=== PATIENT | male | born 1970 | race Caucasian/White ===

== ENCOUNTER 2017-07-10 14:42 | Emergency (ER) | payer MEDICAID, SELFPAY ==
[2017-07-10 14:43] VITALS: BP 141/95; PULSE 101; RESP 16; TEMP 36.6; O2SAT 94; BMI 33.6
--- NOTE | 2017-07-10 15:12 | ED.VISSUMM ---
- ER Visit Summary Date of Service: 07/10/17 Chief Complaint: Rash and headache History of Present Illness: The patient is a 46 M states that last Eddie he developed a headache on the left side of his head. He states the headache has gotten better but 2 days ago he developed a rash. He describes the pain of the rash is an open sore. Now he notes his eyelid is swollen and also has the rash. He states his eyeball hurts and he notes redness of the eye. He denies any visual changes. He wears no contacts or glasses. He is not immunocompromised. Physical Examination: Afebrile vital signs are stable Gen: Well-nourished well-developed Head: Normocephalic atraumatic Eyes: Perrl EOMI left eye is injected with mild tearing. ENT: TMs clear no rhinorrhea moist mucous membranes Neck: Supple no lymphadenopathy no JVD nontender CVS: Regular rate rhythm no murmurs normal S1-S2 Respiratory: No distress clear to auscultation bilaterally chest nontender Abdomen: Soft nontender nondistended normal bowel sounds no masses Back: Nontender Extremity: Nontender no edema Skin: Normal color rash consistent with zoster in the V1 distribution involving the upper and lower eyelid. Neuro: alert orientated ?3 CN II-XII intact normal strength sensation reflexes gait cerebellar Psych: Normal affect normal mood Emergency Department Course and Treatment: We do not have fluorescein strips to assess his eye. I spoke with Dr. Gracia from ophthalmology who is happy to see the patient. He will be seen tomorrow as no one is in the office today. We will start him on antivirals, prednisone, and [place]. Return if worsening. Impression: 1. Herpes zoster ophthalmicus This note was generated with mPortal dictation software. It may contain incorrect words, spelling, and punctuation that were not noted in review of the chart prior to signing ED Disposition - Plan for ED Patient: Disposition: Home or Assisted Living Chief Complaint: Headache Instructions: ED Shingles Prescriptions: Hydrocodone Bitart/Apap 5-325 [[place] 5/325] 1 - 2 tab PO Q6H PRN PRN 3 Days #20 tab PRN Reason: Pain Acyclovir [Zovirax] 800 mg PO 5X/DAY #40 tab Prednisone [Deltasone] 60 mg PO DAILY #15 tab Referrals: Ady Kaur MD [Primary Care Provider] - 1 Week Gabino Gracia MD [STAFF PHYSICIAN] - (APPT IS SATURDAY (JULY 11 2017) AT 1415 HOURS )
--- NOTE | 2017-07-10 15:32 | ED.DCSUM_ITS ---
- ER Visit Summary Date of Service: 07/10/17 Chief Complaint: Rash and headache History of Present Illness: The patient is a 46 M states that last Eddie he developed a headache on the left side of his head. He states the headache has gotten better but 2 days ago he developed a rash. He describes the pain of the rash is an open sore. Now he notes his eyelid is swollen and also has the rash. He states his eyeball hurts and he notes redness of the eye. He denies any visual changes. He wears no contacts or glasses. He is not immunocompromised. Physical Examination: Afebrile vital signs are stable Gen: Well-nourished well-developed Head: Normocephalic atraumatic Eyes: Perrl EOMI left eye is injected with mild tearing. ENT: TMs clear no rhinorrhea moist mucous membranes Neck: Supple no lymphadenopathy no JVD nontender CVS: Regular rate rhythm no murmurs normal S1-S2 Respiratory: No distress clear to auscultation bilaterally chest nontender Abdomen: Soft nontender nondistended normal bowel sounds no masses Back: Nontender Extremity: Nontender no edema Skin: Normal color rash consistent with zoster in the V1 distribution involving the upper and lower eyelid. Neuro: alert orientated ?3 CN II-XII intact normal strength sensation reflexes gait cerebellar Psych: Normal affect normal mood Emergency Department Course and Treatment: We do not have fluorescein strips to assess his eye. I spoke with Dr. Gracia from ophthalmology who is happy to see the patient. He will be seen tomorrow as no one is in the office today. We will start him on antivirals, prednisone, and [place]. Return if worsening. Impression: 1. Herpes zoster ophthalmicus This note was generated with Parametric dictation software. It may contain incorrect words, spelling, and punctuation that were not noted in review of the chart prior to signing ED Disposition - Plan for ED Patient: Disposition: Home or Assisted Living Chief Complaint: Headache Instructions: ED Shingles Prescriptions: Hydrocodone Bitart/Apap 5-325 [[place] 5/325] 1 - 2 tab PO Q6H PRN PRN 3 Days #20 tab PRN Reason: Pain Acyclovir [Zovirax] 800 mg PO 5X/DAY #40 tab Prednisone [Deltasone] 60 mg PO DAILY #15 tab Referrals: Ady Kaur MD [Primary Care Provider] - 1 Week Gabino Gracia MD [STAFF PHYSICIAN] - (APPT IS SATURDAY (JULY 11 2017) AT 1415 HOURS )
== END 2017-07-10 15:48 | disposition home or self-care (01) ==
LOC: ED 15:43
PROVIDERS: Emergency Provider Emergency Medicine; Family Provider Internal Medicine; PCP Internal Medicine
DX: B02.30 Zoster ocular disease, unspecified (principal); I10 Essential (primary) hypertension; Z87.442 Personal history of urinary calculi; Z79.899 Other long term (current) drug therapy
CPT/HCPCS: 99283

== ENCOUNTER 2018-06-02 21:38 | Observation (INO) | payer MEDICAID, SELFPAY ==
[2018-06-02 21:38] VITALS: BP 165/115; PULSE 83; RESP 17; TEMP 35.5; O2SAT 96; BMI 32.5
--- NOTE | 2018-06-02 21:55 | ED.VIS.GEN ---
History of Present Illness Informant: Patient Onset: Today, Hours - 4 Context: Gradual Onset - About 5-10 minutes after eating a salad with ranch dressing Timing: Continuous Quality: like gas cramps Location: upper abd Current Severity: Severe Maximum Severity: Severe Worsened by: nothing Relieved by: nothing Associated Symptoms: n/v without coffee-ground emesis or hematemesis Narrative: Was near syncopal at one point, while he was very nauseated. States he only had this 1 other time, it was a week or 2 ago but it only lasted an hour or so and then solved. It has been somewhat colicky in the past 4 hours since it has been present. It radiates straight through to his back. He has had no recent alcohol and does not drink at all. No recent melena or bright red blood per rectum. No urinary symptoms. The pain is in a band across his upper abdomen, nonlateralizing. No thoracic symptoms. Recent Illness/Hospitalization: No <Zenon Horowitz - Last Filed: 06/03/18 00:03> <Ector Recio - Last Filed: 06/03/18 01:29> Chief Complaint: Abd Pain Past Medical History Past Medical History: None Surgical History: no surgical history Smoking Status: Never smoker Alcohol: None <Zenon Horowitz - Last Filed: 06/03/18 00:03> <Ector Recio - Last Filed: 06/03/18 01:29> - Allergies and Home Meds Allergies/Adverse Reactions: Allergies fish oil Allergy (Verified 06/02/18 21:41) Hives Primary Care Physician: Ady Kaur MD [Primary Care Provider] - Review of Systems General: Denies: Chills, Fever, Sweats Eyes: Denies: Visual changes - bilaterally, Diplopia ENT: Denies: Rhinorrhea, Sore throat Cardiovascular: Denies: Chest pain, Palpitations Respiratory: Denies: Dyspnea, Cough, Dyspnea on exertion Gastrointestinal: Reports: Abdominal pain, Nausea, Vomiting. Denies: Diarrhea, Melena, Hematochezia Genitourinary: Denies: Dysuria, Hematuria, Frequency Musculoskeletal: Reports: Back pain. Denies: Extremity Pain Skin: Denies: Rash, Wounds Neurological: Denies: Headache, Weakness, Numbness <Zenon Horowitz - Last Filed: 06/03/18 00:03> Physical Exam Vital Signs/Narrative: Vital Signs Temp Pulse Resp BP Pulse Ox 06/02/18 21:38 96 F L 83 17 165/115 H 96 Inital Vital Signs reviewed: Yes General: Well nourished, Well developed, No Acute Distress Head: Normocephalic, Atraumatic Eyes: Perrl, EOMI ENT: Moist mucous membranes, No rhinorrhea Neck: Supple, Nontender Cardiovascular: Regular rate, Regular rhythm, No murmurs Respiratory: No distress, CTA bilaterally, Chest nontender Abdomen: Soft, Nontender, Nondistended, Normal bowel sounds, No masses. Negative for: Pulsatile mass, Mcmahon's sign Back: Nontender - and nml ROM w/o increased pain, Normal Inspection. Negative for: CVA tenderness Extremities: Nontender, No edema Skin: Normal color, No rash Neurological: Alert, Oriented x3, Cranial nerves II-XII grossly intact, Normal Strength, Normal Sensation, Normal Gait Psychological: Normal affect, Normal Mood <Zenon Horowitz - Last Filed: 06/03/18 00:03> Vital Signs/Narrative: Vital Signs Temp Pulse Resp BP Pulse Ox 06/03/18 00:47 85 18 174/91 H 94 06/02/18 21:38 96 F L 83 17 165/115 H 96 <Ector Recio - Last Filed: 06/03/18 01:29> Diagnostic/Tx/Re-eval Laboratory Tests 06/02/18 06/02/18 Range/Units 22:03 22:03 WBC 12.3 H (4.4-11.0) K/mm3 RBC 5.61 (4.6-6.2) M/mm3 Hgb 16.7 H (13.0-16.5) g/dl Hct 48.2 (40-54) % MCV 85.9 (80-94) fL MCH 29.8 (27.0-32.0) pg MCHC 34.6 (32-36) g/gl RDW 13.6 (11.6-14.6) % RDW Differential 41.9 (35.1-43.9) fl Plt Count 220 (150-450) K/mm3 MPV 9.4 (6.2-12.0) fl Immature Gran % (Auto) 0.700 (0.0-0.9) % Neut % (Auto) 74.2 H (47-70) % Lymph % (Auto) 18.5 L (19-41) % [place] % (Auto) 5.3 (0-10) % Eos % (Auto) 0.9 (0-5) % Baso % (Auto) 0.4 (0-1) % Absolute Neuts (auto) 9.1 H (2.0-7.7) X10^3/uL Absolute Lymphs (auto) 2.27 (0.83-4.51) X10^3/ul Total Counted Not Reportable Sodium 140 (136-145) mmol/L Potassium 3.6 (3.5-5.1) mmol/L Chloride 104 (98-107) mmol/L Carbon Dioxide 27.0 (21.0-32.0) mmol/L Anion Gap 9 (5-15) BUN 17 (7-18) mg/dL Creatinine 1.18 (0.70-1.30) mg/dL Estim Creat Clear Calc 86.77 ml/min Est GFR (MDRD) Af Amer 86 (>60) mL/min Est GFR (MDRD) Non-Af 71 (>60) mL/min BUN/Creatinine Ratio 14.4 (10-20) RATIO Glucose 150 H (74-106) mg/dL Calcium 9.3 (8.5-10.1) mg/dL Total Bilirubin 0.40 (0.20-1.00) mg/dL AST 22 (15-37) U/L ALT 46 (16-61) U/L Alkaline Phosphatase 135 H (45-117) U/L Total Protein 8.1 (6.4-8.2) g/dL Albumin 4.0 (3.2-5.0) g/dL Globulin 4.1 (2.2-4.2) g/dL Albumin/Globulin Ratio 1.0 (0.9-2.4) RATIO Lipase 131 (73-393) U/L - Medical Decision Making Patient was initially treated with a GI cocktail and Zofran, given his very benign abdominal exam. However, it did not help his discomfort or nausea at all, he vomited up part of the GI cocktail after he kept it down for 5 minutes and it did not help, and he actually said his pain was worse. He was then treated with morphine and Phenergan, he really did not have much relief at all. I did a bedside ultrasound, which shows a distended gallbladder with no sonographic Mcmahon's, no pericholecystic fluid, and a gallbladder wall that is 0.19 cm, which is well within normal limits. I do not see any signs of shadowing stones. He has a mild leukocytosis, his liver enzymes and lipase are all normal. I am concerned that these medications have not helped him feel better at all. He has not been having any routine symptoms after meals to suggest a peptic ulcer, my suspicion for perforation is low, but I am going to obtain a CT with IV contrast to rule out retroperitoneal processes and other intra-abdominal processes that could explain this. Meanwhile, he is being treated additionally with Toradol and Bentyl to try to help his symptoms. Will be checked out to the nighttime ED physician for CT results and reevaluation. <Zenon Horowitz - Last Filed: 06/03/18 00:03> - Medical Decision Making Patient was signed out to me to reevaluate and follow-up on CT. CT shows a 3 x 1 mm proximal left ureteral calculus with mild hydroureter. Patient still complaining of significant pain on reevaluation. He was given an additional dose of IV morphine. He was discussed with urology and patient admitted. <Ector Recio - Last Filed: 06/03/18 01:29> ED Disposition <Zenon Horowitz - Last Filed: 06/03/18 00:03> <Ector Recio - Last Filed: 06/03/18 01:29> - Plan for ED Patient: Diagnosis: Upper abdominal pain Instructions: ED Abdominal Pain Unkn Cause Referrals: Ady Kaur MD [Primary Care Provider] -
[2018-06-02] MEDS: Ondansetron 4 MG/2 ML Vial IV (22:08)
[2018-06-02] MEDS: Mag Hydrox/Al Hydrox/Simeth 30 ML UDC PO (22:08)
[2018-06-02] MEDS: 0.9% Normal Saline 1,000 ML 1000 ML IV (22:08)
[2018-06-02 22:12] LABS: Absolute Lymphocyte Count 2.27 X10^3/ul (0.83-4.51); Absolute Neutrophil Count 9.1 X10^3/uL (2.0-7.7); Basophil# 0.05 X10^3/uL; Basophil% 0.4 % (0-1); Eosinophil# 0.11 X10^3/uL; Eosinophils% 0.9 % (0-5); Hematocrit 48.2 % (40-54); Hemoglobin 16.7 g/dl (13.0-16.5); Lymphocyte # 2.27 X10^3/ul (4.0); Lymphocyte % 18.5 % (19-41); Mean Corp Hgb Conc 34.6 g/gl (32-36); Mean Corpuscular Hgb 29.8 pg (27.0-32.0); Mean Corpuscular Volume 85.9 fL (80-94); Mean Platelet Vol. 9.4 fl (6.2-12.0); Monocyte# 0.65 X10^3/uL; Monocyte% 5.3 % (0-10); Neutrophil # 9.09 X10^3/uL (2.7-7.7); Neutrophil % 74.2 % (47-70); Platelet Count 220 K/mm3 (150-450); RBC Distribution Width CV 13.6 % (11.6-14.6); RBC Distribution Width SD 41.9 fl (35.1-43.9); Red Blood Count 5.61 M/mm3 (4.6-6.2); White Blood Count 12.3 K/mm3 (4.4-11.0)
[2018-06-02 22:13] LABS: POSITIVE COUNT NO; POSITIVE DIFFERENTIAL NO; POSITIVE MORPHOLOGY NO
[2018-06-02 22:47] LABS: AST(SGOT) 22 U/L (15-37); Alanine Aminotransfer ALT/SGPT 46 U/L (16-61); Alkaline Phosphatase 135 U/L (45-117); Anion Gap 9 (5-15); BUN 17 mg/dL (7-18); BUN/Creat Ratio 14.4 RATIO (10-20); Calcium,Total 9.3 mg/dL (8.5-10.1); Chloride 104 mmol/L (98-107); Creatinine, Serum 1.18 mg/dL (0.70-1.30); EST Glomerular Filtration Rate 71 mL/min (>60); Est Glom Filt Rate - Afr Amer 86 mL/min (>60); Estimated Creatinine Clearance 86.77 ml/min; Globulin 4.1 g/dL (2.2-4.2); Glucose 150 mg/dL (74-106); Lipase 131 U/L (73-393); Potassium 3.6 mmol/L (3.5-5.1); Protein, Total 8.1 g/dL (6.4-8.2); Sodium Level 140 mmol/L (136-145)
[2018-06-02] MEDS: Morphine 4 MG/ML Syringe IV (23:09)
[2018-06-02] MEDS: proMETHazine 25 MG/ML Syringe 12.5 MG IV (23:10)
--- NOTE | 2018-06-02 23:51 | CT_ITS ---
HISTORY: UPPER BACK/ABD PAIN, N/V TECHNIQUE: Helically acquired images were obtained of the abdomen and pelvis following IV contrast. A radiation dose optimization technique was used for this scan. IV Contrast dosage and agent: 100 cc Isovue-300 contrast Oral contrast: None. COMPARISON: 03/13/2017 FINDINGS: Both kidneys are normal in position 3 x 1 mm stone within the proximal left ureter at the L3-4 level with secondary minor hydroureter proximal to the stone. No significant hydronephrosis. The left kidney shows approximately 5 calyceal stones, also seen previously. The largest stone measures 5 mm at the mid pole. No renal calculi on the right and no evidence of hydronephrosis or hydroureter on the right. Adrenal glands are not enlarged. Lower thorax: Clear. No pleural effusion or pericardial effusion. Normal gallbladder. Fatty infiltration of the liver. Posterior segment right hepatic lobe 8 mm cyst, unchanged. No biliary dilatation or suspicious hepatic lesion. The spleen is mildly enlarged measuring 14.7 cm in length and shows a small calcified granuloma. Normal pancreas. Normal abdominal aorta and IVC. No ascites or retroperitoneal lymph node enlargement. GI tract: No obstruction. Moderate colonic stool. The appendix is poorly seen. No pericecal or pericolonic inflammatory changes. Pelvis: Normal urinary bladder. No free fluid or lymphadenopathy. Bones: No acute osseous abnormality. CT/Abdomen/Pelvis W IV Cont ONLY IMPRESSION: 1. 3 x 1 mm proximal left ureteral stone with secondary minor hydroureter but no significant left hydronephrosis. This stone is new compared to previous. 2. Multiple small left renal calyceal stones, also seen previously. 3. No hydronephrosis or hydroureter on the right. 4. Fatty liver and mild splenomegaly, unchanged. No ascites. Individualized dose optimization techniques were used for this CT. at 1002 Reported and signed by: Compa Guzman MD Electronically Signed: Compa Guzman, at 1:03 EST Tel , Service support ,
[2018-06-03] VITALS (13 sets, daily range): BP systolic 151–180; BP diastolic 75–101; PULSE 67–117; RESP 16–18; TEMP 36.7–37.2; O2SAT 92–97; BMI 34.4
[2018-06-03] MEDS: Ketorolac 15 MG/ML Vial IV (00:01)
[2018-06-03] MEDS: Ondansetron 4 MG/2 ML Vial IV (00:26)
[2018-06-03 00:45] LABS: Bacteria 0 SEEN /hpf (None Seen); Mucous, Urine 0 SEEN /hpf (<or=2+)
[2018-06-03 00:48] LABS: Color, Urine Yellow (Yellow); Glucose, Dipstick 50 mg/dl (Normal); Ketone-Dipstick 5 mg/dl (Negative); Leukocyte Esterase-Dipstick 25 /ul (Negative); Nitrite-Dipstick Negative (Negative); Occult Blood-Urine 150 /ul (Negative); Protein-Dipstick 15 mg/dl (Negative); Urine Bilirubin Dipstick Negative (Negative); Urine Clarity Clear (Clear); Urine Urobilinogen Normal (Normal)
[2018-06-03 01:05] LABS: Red Blood Cells-Urine 10-25 SEEN /hpf (0-5); Squamous Epithelial Cells - UA 0-5 SEEN /hpf (0-5); White Blood Cells 0-5 SEEN /hpf (0-5)
[2018-06-03] MEDS: Morphine 4 MG/ML Syringe IV (01:39)
[2018-06-03] MEDS: 0.9% Normal Saline 1,000 ML 100 ML IV (02:55)
--- NOTE | 2018-06-03 05:00 | RAD_ITS ---
HISTORY: KIDNEY STONE EXAM:Abdominal series 2 views COMPARISON: CT abdomen and pelvis 06/03/2018 FINDINGS: Recent CT scanning with iodinated contrast. Residual contrast within both kidneys and urinary bladder. No hydronephrosis or hydroureter identified. As correlated with CT, 5-6 mm stone at the lower pole of the left kidney. No ureteral stones visualized. Nonobstructive bowel gas pattern. The urinary bladder is not over distended. RAD/Abdomen Single View IMPRESSION: 1. Residual iodinated contrast within the urinary tract and no hydronephrosis or hydroureter identified. 2. No ureteral stones visualized. 3. Nonobstructive bowel gas pattern. at 3604 Reported and signed by: oCmpa Guzman MD Electronically Signed: Compa Guzman, at 5:25 EST Tel , Service support ,
[2018-06-03] MEDS: Morphine 2 MG/ML Syringe IV (07:31)
--- NOTE | 2018-06-03 08:02 | HP.PCM_ITS ---
History of Present Illness Date of Admission: 06/02/18 Chief Complaint: Abdominal pain and left ureteral calculi The patient is a 47 year old male who presented with upper abdominal pain epigastric pain on workup was found to have a 3 mm stone in the left ureter coming down the left side unclear why the stone was causing epigastric pain. Plan today at least to place a stent on the left side and see if this will alleviate the above epigastric pain if the pain does not get better will consult hospitalist. Past Medical History Allergies fish oil Allergy (Verified 06/02/18 21:41) Hives Home Medications: Ambulatory Orders Medication Instructions Recorded Bisoprolol Fumarate 5 mg PO DAILY 06/02/18 Potassium Chloride 8 meq PO DAILY 06/03/18 Verapamil HCl [Verapamil Sr] 120 mg PO QHS 06/03/18 Surgical History: no surgical history Psychiatric History: No pertinent psych hx Lives: With Family Smoking Status: Never smoker Alcohol: None Review of Systems Constitutional: Denies: Chills, Fever, Weight Change HEENT: Denies: Head Aches, Sinus Congestion, Sinus Drainage Cardiovascular: Denies: Chest Pain, Palpitations Respiratory: Denies: Cough, Shortness of breath at rest, Sputum production Gastrointestinal: Reports: Abdominal Pain. Denies: Nausea, Vomiting Genitourinary: Reports: Hematuria. Denies: Dysuria Musculoskeletal: Denies: Joint Pain, Joint Tenderness Skin: Denies: Rash, Wounds Neurological: Denies: Numbness, Tingling, Focal weakness Psychiatric: Denies: Anxiety, Depression, Homicidal Ideations, Suicidal Ideations Hematologic/ Lymphatic: Denies: Easy Bruising, Easy Bleeding VTE Information - Inpt Only VTE Present on Admission: No VTE Mechan Device Prophylaxis: SCD's Patient Problems: Active and Suspected Problems Upper abdominal pain (Acute) - Physical Exam General: Alert, Oriented x3, Cooperative HEENT: Atraumatic, PERRLA, EOMI, Normocephalic Neck: Supple, No JVD, Negative Carotid Bruits Lungs: Clear to auscultation, Normal air movement Cardiovascular: Regular rate, No murmurs Abdomen: Bowel Sounds Present, Soft, Non Tender Extremities: No edema, Capillary Refill Less than 3 Seconds Skin: No rashes, No breakdown Musculoskeletal: No Tenderness to Palpation of Joints or Extremities Neurological: Cranial nerves II-XII grossly intact Psych/Mental Status: Normal Affect, Appropriate Vital Signs Temp Pulse Resp BP Pulse Ox 98.2 F 67 16 176/99 H 96 06/03/18 02:34 06/03/18 02:34 06/03/18 02:34 06/03/18 02:34 06/03/18 02:34 Oxygen Delivery Method Room Air Weight: 115 kg Body Mass Index (BMI) 34.4 Intake and Output for Last 24 Hours 06/01/18 06/02/18 06/03/18 23:59 23:59 23:59 Intake Total 294 / 294 Balance 294 / 294 Laboratory Tests Past 24 Hrs 06/02/18 06/02/18 06/03/18 22:03 22:03 00:35 WBC 12.3 H RBC 5.61 Hgb 16.7 H Hct 48.2 MCV 85.9 MCH 29.8 MCHC 34.6 RDW 13.6 RDW Differential 41.9 Plt Count 220 MPV 9.4 Immature Gran % (Auto) 0.700 Neut % (Auto) 74.2 H Lymph % (Auto) 18.5 L [place] % (Auto) 5.3 Eos % (Auto) 0.9 Baso % (Auto) 0.4 Absolute Neuts (auto) 9.1 H Absolute Lymphs (auto) 2.27 Total Counted Not Reportable Sodium 140 Potassium 3.6 Chloride 104 Carbon Dioxide 27.0 Anion Gap 9 BUN 17 Creatinine 1.18 Estim Creat Clear Calc 86.77 Est GFR (MDRD) Af Amer 86 Est GFR (MDRD) Non-Af 71 BUN/Creatinine Ratio 14.4 Glucose 150 H Calcium 9.3 Total Bilirubin 0.40 AST 22 ALT 46 Alkaline Phosphatase 135 H Total Protein 8.1 Albumin 4.0 Globulin 4.1 Albumin/Globulin Ratio 1.0 Lipase 131 Urine Color Yellow Urine Clarity Clear Urine pH 7.0 Ur Specific [place] 1.010 Urine Protein 15 H Urine Glucose (UA) 50 H Urine Ketones 5 H Urine Occult Blood 150 H Urine Nitrite Negative Urine Bilirubin Negative Urine Urobilinogen Normal Ur Leukocyte Esterase 25 H Urine RBC 10-25 SEEN Urine WBC 0-5 SEEN Ur Squamous Epith Cells 0-5 SEEN Urine Bacteria 0 SEEN Urine Mucus 0 SEEN Assessment/Plan All Active Problems Upper abdominal pain (Acute) 47-year-old male with 3 mm stone in the proximal left ureter planned for cystoscopy and left stent placement today also has severe epigastric and abdominal pain after stent placement see if this pain gets better if it does then will discharge home if not we will have evaluation continue.
--- NOTE | 2018-06-03 10:46 | NURSING ---
PT RESTING QUIETLY IN BED WITH EYES CLOSED, RESP EASY
[2018-06-03] MEDS: 0.9% Normal Saline 1,000 ML 75 ML IV (11:55)
--- NOTE | 2018-06-03 12:56 | CASEMGMT ---
RN CM Assessment Introduced role of RN CM to patient. Patient is alert, oriented and able to participate in RN CM Assessment. Care providers, pharmacy, and demographics verified. Presentation: Admitted for Pain Control, Kidney Stone. Plan: Stent Left Side. CC: Upper Abd Pain, *3mm Stone Lt Ureter. PCP: Ady Kaur Preferred Pharmacy: [facility] near [place] Insurance: [employer] Prescription Benefit: Yes LNOK: Parents Austyn and Savanna Epperson Living Arrangements: Lives with parents in a 2 story home. Works for [employer] Independent with ambulation and ADL's. Transportation: Drives self, father Austyn to transport in [place]. DME: None, No Preference. HHC: None in past, No preference. LTC: None in past, No preference. [place] PLAN: Home with no anticipated needs. Ashley Randolph RN
--- NOTE | 2018-06-03 13:42 | CASEMGMT ---
As per admitting RN, pt does not have LW/POA, not interested in any additional information. PIERRE Slater, PELLET POST INSPECTOR
[2018-06-03] MEDS: Cefazolin 1 GM/50 ML BAG IV (13:43)
--- NOTE | 2018-06-03 15:30 | NURSING ---
PT TO OR VIA BED
--- NOTE | 2018-06-03 15:34 | NURSING ---
REPORT CALLED TO GARETT IN [facility]
--- NOTE | 2018-06-03 16:30 | DCINST_ITS ---
Discharge Diet: Light diet - advance as tolerated Discharge Activity: Return to Normal Activity Call your doctor if your incision/area has: Increased Pain/ Swelling Call your doctor if you observe: Fever of 101 or Higher Instructions: ED Abdominal Pain Unkn Cause Allergies/Adverse Reactions: Allergies fish oil Allergy (Verified 06/02/18 21:41) Hives Medications to take at Discharge Bisoprolol Fumarate 5 mg PO DAILY 06/02/18 Acetaminophen [Tylenol Extra Strength] 500 mg PO Q4H PRN PRN #20 tablet 06/03/18 Ibuprofen 600 mg PO Q6H PRN PRN #20 tablet 06/03/18 Potassium Chloride 8 meq PO DAILY 06/03/18 Verapamil HCl [Verapamil Sr] 120 mg PO QHS 06/03/18 The following prescriptions were given: Acetaminophen [Tylenol Extra Strength] 500 mg PO Q4H PRN PRN #20 tablet PRN Reason: Pain Ibuprofen 600 mg PO Q6H PRN PRN #20 tablet PRN Reason: Pain Primary Care Physician: Ady Kaur MD [Primary Care Provider] - Test Results: Test results from this visit will be discussed in further detail at your follow- up appointment, if applicable. Please Follow Up With: Dk Saxena MD When: please call office
[2018-06-03] MEDS: Lidocaine Jelly 2% 20 ML Syringe (URO-JET) 20 APPLIC (16:33)
[2018-06-03] MEDS: Lubricating Jelly 60 GM Tube 30 GM TOPICAL (16:33)
--- NOTE | 2018-06-03 16:40 | PCM.OPRPT ---
Report of Operation Date of Procedure: 06/03/18 Pre-Operative Diagnosis: Left ureteral calculi renal colic Post-Operative Diagnosis: Same Surgery/Procedure Performed:: Cystoscopy left retrograde pyelogram left stent placement Description of Surgical Findings:: 47-year-old male taken back to the operating room and CAT scan shows a stone in the mid left ureter came in with abdominal pain. Patient was taken back to the operating room with smooth induction of general anesthesia he was placed supine on the table in the dorsolithotomy position penis and testicles were prepped and draped in usual sterile fashion went of the bladder with a 21 [place] cystourethroscope cannula, cannulated the left ureteral orifice with a Glidewire and a Pollack catheter performed a left left retrograde pyelogram this with normal cystoscopy the bladder was normal I then advanced a wire up to the left kidney in the renal pelvis and then over the wire place a stent once a stent was in good position pulled the wire the stent: Kidney bladder good position drain the bladder patient anesthetic was reversed plan to see him back next week to perform ureteroscopy and laser the stone. Type of Anesthesia:: Local MAC Drains: stent left side - Admit VTE Documentation VTE Present on Admission: No
== END 2018-06-03 18:54 | disposition home or self-care (01) ==
LOC: ED 22:18 → MS2 06-03 02:15
PROVIDERS: Admitting Provider Urology; Emergency Provider Emergency Medicine; Family Provider Internal Medicine; PCP Internal Medicine; Visit Provider Urology
PROC: (CPT 52332; principal; 2018-06-03 17:05)
DX: N20.1 Calculus of ureter (principal); R55 Syncope and collapse; K82.8 Other specified diseases of gallbladder; I10 Essential (primary) hypertension; Z79.899 Other long term (current) drug therapy
CPT/HCPCS: 52332; 74018; 74177; 76000; 80053; 81001; 83690; 85025; 96361; 96365; 96375; 96376; 99218; 99282; J7030; A4216; C1769; C2617; G0378; J2405

== ENCOUNTER 2018-06-11 10:12 | Day surgery (SDC) | payer MEDICAID, SELFPAY ==
[2018-06-03 14:53] VITALS: BMI 34.4
--- NOTE | 2018-06-10 12:11 | PCM.HP.BLA ---
History and Physical Date of Admission: 06/11/18 Chief Complaint: Abdominal pain and left ureteral calculi The patient is a 47 year old male who presented with upper abdominal pain epigastric pain on workup was found to have a 3 mm stone in the left ureter coming down the left side unclear why the stone was causing epigastric pain. Plan today at least to place a stent on the left side and see if this will alleviate the above epigastric pain if the pain does not get better will consult hospitalist. Past Medical History Allergies fish oil Allergy (Verified 06/02/18 21:41) Hives Home Medications: Ambulatory Orders Medication Instructions Recorded Bisoprolol Fumarate 5 mg PO DAILY 06/02/18 Potassium Chloride 8 meq PO DAILY 06/03/18 Verapamil HCl [Verapamil Sr] 120 mg PO QHS 06/03/18 Surgical History: no surgical history Psychiatric History: No pertinent psych hx Lives: With Family Smoking Status: Never smoker Alcohol: None Review of Systems Constitutional: Denies: Chills, Fever, Weight Change HEENT: Denies: Head Aches, Sinus Congestion, Sinus Drainage Cardiovascular: Denies: Chest Pain, Palpitations Respiratory: Denies: Cough, Shortness of breath at rest, Sputum production Gastrointestinal: Reports: Abdominal Pain. Denies: Nausea, Vomiting Genitourinary: Reports: Hematuria. Denies: Dysuria Musculoskeletal: Denies: Joint Pain, Joint Tenderness Skin: Denies: Rash, Wounds Neurological: Denies: Numbness, Tingling, Focal weakness Psychiatric: Denies: Anxiety, Depression, Homicidal Ideations, Suicidal Ideations Hematologic/ Lymphatic: Denies: Easy Bruising, Easy Bleeding VTE Information - Inpt Only VTE Present on Admission: No VTE Mechan Device Prophylaxis: SCD's Patient Problems: Active and Suspected Problems Upper abdominal pain (Acute) - Physical Exam General: Alert, Oriented x3, Cooperative HEENT: Atraumatic, PERRLA, EOMI, Normocephalic Neck: Supple, No JVD, Negative Carotid Bruits Lungs: Clear to auscultation, Normal air movement Cardiovascular: Regular rate, No murmurs Abdomen: Bowel Sounds Present, Soft, Non Tender Extremities: No edema, Capillary Refill Less than 3 Seconds Skin: No rashes, No breakdown Musculoskeletal: No Tenderness to Palpation of Joints or Extremities Neurological: Cranial nerves II-XII grossly intact Psych/Mental Status: Normal Affect, Appropriate Vital Signs Temp Pulse Resp BP Pulse Ox 98.2 F 67 16 176/99 H 96 06/03/18 02:34 06/03/18 02:34 06/03/18 02:34 06/03/18 02:34 06/03/18 02:34 Oxygen Delivery Method Room Air Weight: 115 kg Body Mass Index (BMI) 34.4 Intake and Output for Last 24 Hours Intake Total 294 / 294 Balance 294 / 294 Laboratory Tests Past 24 Hrs Assessment/Plan All Active Problems Upper abdominal pain (Acute) 47-year-old male with 3 mm stone in the proximal left ureter planned for cystoscopy and left stent placement today. plan for laser.
[2018-06-11] VITALS (7 sets, daily range): BP systolic 120–163; BP diastolic 71–84; PULSE 88–107; RESP 16–18; TEMP 36.4–36.8; O2SAT 92–98; BMI 33.9
--- NOTE | 2018-06-11 12:11 | DCINST_ITS ---
Discharge Diet: Light diet - advance as tolerated Discharge Activity: Return to Normal Activity Suture Line Care: Avoid Pulling/Pushing, Avoid Pinching/Bending Allergies/Adverse Reactions: Allergies fish oil Allergy (Verified 06/11/18 10:32) Hives Medications to take at Discharge Bisoprolol Fumarate 5 mg PO DAILY 06/02/18 Acetaminophen [Tylenol Extra Strength] 500 mg PO Q4H PRN PRN #20 tablet 06/03/18 Ibuprofen 600 mg PO Q6H PRN PRN #20 tablet 06/03/18 Potassium Chloride 8 meq PO DAILY 06/03/18 Verapamil HCl [Verapamil Sr] 120 mg PO QHS 06/03/18 Flaxseed Oil 1,000 mg PO DAILY 06/09/18 Acetaminophen [Tylenol Extra Strength] 500 mg PO Q4H PRN PRN #20 tablet 06/11/18 Ibuprofen 600 mg PO Q6H PRN PRN #20 tablet 06/11/18 The following prescriptions were given: Acetaminophen [Tylenol Extra Strength] 500 mg PO Q4H PRN PRN #20 tablet PRN Reason: Pain Ibuprofen 600 mg PO Q6H PRN PRN #20 tablet PRN Reason: Pain Primary Care Physician: Ady Kaur MD [Primary Care Provider] - Test Results: Test results from this visit will be discussed in further detail at your follow- up appointment, if applicable. Please Follow Up With: Dk Saxena MD When: please call to make an appointment.
[2018-06-11] MEDS: Cefazolin 2 GM in 0.9% Normal Saline 100 ML IV (12:18)
--- NOTE | 2018-06-11 12:54 | OP.PCM_ITS ---
Report of Operation Date of Procedure: 06/11/18 Pre-Operative Diagnosis: Left renal calculi and left ureteral calculi Post-Operative Diagnosis: Same Surgery/Procedure Performed:: Cystoscopy, left retrograde pyelogram, interpretation of fluoroscopic images, left ureteroscopy laser lithotripsy of stones and left stent placement Description of Surgical Findings:: 47-year-old male with a history of kidney stones presented to the hospital with obstructing stone a stent was placed he now comes back to the operating room for elective ureteroscopy and laser lithotripsy of stones in the ureter and in the kidney. 47-year-old male taken back to the operating room at the smooth induction of general anesthesia he was placed supine on the table, the legs were placed in dorsolithotomy position, the penis and testicles are prepped and draped in usual sterile fashion, went into the bladder with a 21 Ecuadorean rigid cystourethroscope with a 30 degree lens, the entire length the urethra is normal the prostate was normal and nonobstructive once inside the bladder identified the existing stent coming from the left ureteral orifice this was grabbed with a grasper pulled out the meatus. And then advanced a wire 0.035 hydrophilic Glidewire up into the kidney once a wire was in place went over the wire with a flexible 8 Ecuadorean flexible ureteroscope was able to get in the ureter quite easily encountered the first stone in the mid ureter stone was laser little tiny pieces which then passed past the ureteroscope went up to the kidney did a retrograde pyelogram identified upper pole midpole and lower pole kidney stones multiple fragments these were lasered laser lithotripsy using energy fibers of 0.6 J and 18 Hz after lasering all the stones completely and reviewing the retrograde pyelogram interpreting the images then left the wire in place and backloaded off the wire and then backloaded over the wire with a cystoscope and then advanced a 4.5 Ecuadorean by 26 cm stent up in the left side once in good position pulled the wire the stent coiled in the kidney bladder good position but the string of the stent for easy extraction a few days patient bladder was drained is taken back to PACU good condition he will follow-up in the office with a KUB in the remove the stent. Type of Anesthesia:: General Drains: stent left - Admit VTE Documentation VTE Present on Admission: No VTE Mechan Device Prophylaxis: SCD's
[2018-06-11] MEDS: Ketorolac 15 MG/ML Vial IV (14:10)
== END 2018-06-11 15:56 | disposition home or self-care (01) ==
LOC: SDC 10:12 → AC 10:13
PROVIDERS: Family Provider Internal Medicine; PCP Internal Medicine; Referring Provider Urology; Visit Provider Urology
PROC: (CPT 52353; principal; 2018-06-11 12:05)
DX: N20.2 Calculus of kidney with calculus of ureter (principal); K76.0 Fatty (change of) liver, not elsewhere classified; Z87.442 Personal history of urinary calculi; Z79.899 Other long term (current) drug therapy; I10 Essential (primary) hypertension
CPT/HCPCS: 00918; 52356; 76000; J7120; C1769; J2405

== ENCOUNTER 2018-06-15 20:25 | Inpatient (IN) | payer MEDICAID, SELFPAY ==
[2018-06-11 10:35] VITALS: BMI 33.9
[2018-06-15] VITALS (7 sets, daily range): BP systolic 138–166; BP diastolic 80–130; PULSE 119–143; RESP 14–23; TEMP 37.6–39.4; O2SAT 91–97; BMI 31.1; BMI 33.1; BMI 33.2
--- NOTE | 2018-06-15 20:49 | RAD_ITS ---
STUDY: X-RAY CHEST REASON FOR EXAM: Male, 47 years old. Fever, dizziness with nausea and vomiting TECHNIQUE: AP COMPARISON: None. FINDINGS: EKG leads project over the chest. The lungs are clear and expanded. There is no demonstrated pleural abnormality. Normal size heart. Normal mediastinum and lucien. Normal visualized pulmonary arteries. Normal visualized aortic arch and descending thoracic aorta. Normal visualized thoracic spine. Normal visualized ribs, clavicles, and shoulders. There is no demonstrated abnormality of the visualized soft tissue structures of the upper abdomen. RAD/Chest 1 View (Portable) IMPRESSION: 1. Nonacute portable x-ray examination of the chest. Electronically Signed: Fredy Person MD at 21:17 EST , Service support ,
--- NOTE | 2018-06-15 20:49 | EKG12_ITS ---
Test Reason : Blood Pressure : / mmHG Vent. Rate : 133 BPM Atrial Rate : 133 BPM P-R Int : 132 ms QRS Dur : 084 ms QT Int : 296 ms P-R-T Axes : 040 052 -52 degrees QTc Int : [address] & T wave abnormality, consider inferior ischemia ST & T wave abnormality, consider anterolateral ischemia Abnormal ECG Confirmed by ROSLYN LAMAR, JARETT ([id number]), digital editor NICKIE HENDERSON ([id number]) on 06/16/2018 2:38:39 PM Referred By: Bernadette Sams Confirmed By:JARETT MCGOWAN MD
--- NOTE | 2018-06-15 20:55 | ED.DCSUM_ITS ---
- ER Visit Summary Date of Service: 06/15/18 Chief Complaint: Fever and dizziness History of Present Illness: The patient is a 47 M history of kidney stones with recent ureteral stent placed and removed another stent placed all by done by Dr. Saxena in the last 2 weeks. Patient states he was doing well. He woke up this morning he had a fever felt ill and dizzy and decided come in the ER. He is also had nausea and vomiting. Only mild dysuria. No abdominal pain. No chest pain or shortness of breath. No cough. No severe headache. Physical Examination: Middle-aged male. Initial pressure is 161/85 heart rates 134. Pulse ox 96% on room air. He does have a fever. He looks dehydrated possibly even septic. HEENT exam dry mixed memories. Pupils round reactive light. Neck nontender. No lymphadenopathy no meningismus. Lungs clear to auscultation bilaterally. Heart tachycardic rate about 134 no murmur. Abdomen soft. Nondistended. Normal bowel sounds no peritoneal signs. Patient is moving all 4 extremities. Neurovascularly intact. No edema. Back nontender. Neurologically is awake alert with no focal motor deficits. Test Results: Chest x-ray portable one view shows no acute abnormality read both by myself the radiologist. Normal cardiac silhouette. EKG sinus tachycardia rate of [address]-T wave abnormality secondary to most likely is right. CBC shows an elevated white count of 17,300. Hemoglobin of 15. No bands. Watch lites unremarkable normal gap of 10 and creatinine 1.2 liver enzymes unremarkable PT/INR unremarkable urinalysis shows blood but no other signs of infection no bacteria or white cells. Urine and blood cultures were sent. Lactic acid 1.9. Emergency Department Course and Treatment: Patient will be started on the sepsis protocol. He received 2 L normal saline. Cultured and appropriate labs. He will be started on IV Rocephin because of a strong suspicion this is secondary to urinary tract infection or urosepsis. From his recent procedures. He will also be given Tylenol for his fever and IV Toradol. Patient was given a 3rd L of normal saline. On multiple repeat exams he continues to improve. Abdomen is benign. I did discuss all test results with him and I believe a family member present in the room. He is comfortable being admitted. Treatment Plan: I spoke to Dr. Lew Saxena, patient's urologist. He is out of town but will be back in the next 48 hours. We have the hospitalist on page to discuss with him admission. Patient requires more IV fluids and awaiting the culture results. This may be secondary to a virus versus bacteremia or sepsis. Disposition: Admission Impression: Fever of uncertain etiology Leukocytosis Dehydration Recent kidney stones with ureteral stents This note was generated with [employer] dictation software. It may contain incorrect words, spelling, and punctuation that were not noted in review of the chart prior to signing ED Disposition - Plan for ED Patient: Referrals: Ady Kaur MD [Primary Care Provider] -
[2018-06-15 21:00] LABS: Absolute Lymphocyte Count 1.14 X10^3/ul (0.83-4.51); Absolute Neutrophil Count 15.6 X10^3/uL (2.0-7.7); Basophil# 0.02 X10^3/uL; Basophil% 0.1 % (0-1); Eosinophil# 0.01 X10^3/uL; Eosinophils% 0.1 % (0-5); Hematocrit 48.4 % (40-54); Hemoglobin 15.9 g/dl (13.0-16.5); Lymphocyte # 1.14 X10^3/ul (4.0); Lymphocyte % 6.6 % (19-41); Mean Corp Hgb Conc 32.9 g/gl (32-36); Mean Corpuscular Hgb 28.7 pg (27.0-32.0); Mean Corpuscular Volume 87.4 fL (80-94); Mean Platelet Vol. 9.3 fl (6.2-12.0); Monocyte# 0.44 X10^3/uL; Monocyte% 2.6 % (0-10); Neutrophil # 15.59 X10^3/uL (2.7-7.7); Neutrophil % 90.3 % (47-70); POSITIVE COUNT NO; POSITIVE DIFFERENTIAL NO; POSITIVE MORPHOLOGY NO; Platelet Count 245 K/mm3 (150-450); RBC Distribution Width CV 13.1 % (11.6-14.6); RBC Distribution Width SD 41.7 fl (35.1-43.9); Red Blood Count 5.54 M/mm3 (4.6-6.2); White Blood Count 17.3 K/mm3 (4.4-11.0)
[2018-06-15] MEDS: 0.9% Normal Saline 1,000 ML 999 ML IV ×3 (21:03→21:53)
[2018-06-15 21:07] LABS: Prothrombin Time (Protime)PT. 13.1 SECONDS (11.7-14.9)
[2018-06-15 21:08] LABS: Partial Thromboplast Time 28.3 Seconds (24.1-36.2)
[2018-06-15] MEDS: Ceftriaxone 1 GM/50 ML BAG IV (21:09)
[2018-06-15] MEDS: Ketorolac 30 MG/ML Syringe IV (21:11)
[2018-06-15] MEDS: Acetaminophen 500 MG Tablet 1000 MG PO (21:12)
[2018-06-15 21:16] LABS: AST(SGOT) 25 U/L (15-37); Alanine Aminotransfer ALT/SGPT 51 U/L (16-61); Albumin, Serum 3.9 g/dL (3.2-5.0); Alkaline Phosphatase 132 U/L (45-117); Anion Gap 10 (5-15); BUN 16 mg/dL (7-18); BUN/Creat Ratio 12.8 RATIO (10-20); Calcium,Total 8.8 mg/dL (8.5-10.1); Chloride 101 mmol/L (98-107); Creatinine, Serum 1.25 mg/dL (0.70-1.30); EST Glomerular Filtration Rate 66 mL/min (>60); Est Glom Filt Rate - Afr Amer 80 mL/min (>60); Estimated Creatinine Clearance 81.91 ml/min; Globulin 4.1 g/dL (2.2-4.2); Glucose 153 mg/dL (74-106); Potassium 3.5 mmol/L (3.5-5.1); Sodium Level 134 mmol/L (136-145)
[2018-06-15] MEDS: Ondansetron 4 MG/2 ML Vial IV (21:18)
[2018-06-15 21:22] LABS: Lactic Acid 1.9 mmol/L (0.4-2.0)
[2018-06-15 21:53] LABS: Bacteria 0 SEEN /hpf (None Seen); Squamous Epithelial Cells - UA 0 SEEN /hpf (0-5); White Blood Cells 0 SEEN /hpf (0-5)
[2018-06-15 21:58] LABS: Color, Urine Yellow (Yellow); Glucose, Dipstick Normal (Normal); Ketone-Dipstick 15 mg/dl (Negative); Leukocyte Esterase-Dipstick 25 /ul (Negative); Nitrite-Dipstick Negative (Negative); Occult Blood-Urine 250 /ul (Negative); Protein-Dipstick 15 mg/dl (Negative); Urine Bilirubin Dipstick Negative (Negative); Urine Clarity Sl. Cloudy (Clear); Urine Urobilinogen Normal (Normal)
[2018-06-15 22:04] LABS: Mucous, Urine RARE /hpf (<or=2+); Red Blood Cells-Urine 10-25 SEEN /hpf (0-5)
--- NOTE | 2018-06-15 23:37 | HP.PCM_ITS ---
Problem List (1) Acute pyelonephritis Status: Suspected (2) Sepsis Status: Acute (3) History of kidney stones Status: Chronic (4) Essential tremor Status: Chronic (5) Hypertension Status: Chronic History of Present Illness Date of Admission: 06/15/18 Chief Complaint: Fever, dizziness. The patient is a 47 year old M with past medical history as mentioned above presented to the emergency room because of fever and dizziness. Her symptoms started today morning after he woke up from sleep, felt dizzy and lightheaded, described as being unsteady and about to fall, aggravated by standing, felt better after laying flat and later on the day, he started having fever. He had a fever of up to 103 Fahrenheit at home. He denied chest pain or shortness of breath. He denies syncope or presyncope. He had left kidney stone and 2 weeks ago, he underwent cystoscopy with placement of left ureteral stent for left ureteral calculus. 1 week after the first procedure, he underwent repeat cystoscopy with left ureteroscopy laser lithotripsy of stones and placement of left ureteral stent. He mentioned that after the second procedure, he did okay until today morning when he started having dizziness and fever. He mentioned that his urine has been pink and bloody for the last couple of weeks but started to clear up for the last couple of days. He did complain of pain towards the end of urination. He denies flank pain or suprapubic pain. In the emergency department, patient was febrile, tachycardic, blood pressure was elevated, initially was tachypneic and pulse ox was maintained on room air. His routine blood work was remarkable for leukocytosis with neutrophilia, otherwise normal. LFT was normal. Urinalysis revealed cloudy urine, negative for nitrite, there was only 25 leukocyte esterase, 10-25 RBCs and 0 WBCs and no bacteria seen. Chest x-ray showed no acute findings. He is being admitted for sepsis and probable acute pyelonephritis. Past Medical History Past Medical History (Chronic Problems): Chronic Problems History of kidney stones (Chronic) Essential tremor (Chronic) Hypertension (Chronic) Allergies fish oil Allergy (Verified 06/11/18 10:32) Hives Home Medications: Ambulatory Orders Medication Instructions Recorded Potassium Chloride 8 meq PO DAILY 06/03/18 Verapamil HCl [Verapamil Sr] 120 mg PO QHS 06/03/18 Flaxseed Oil 1,000 mg PO DAILY 06/09/18 Acetaminophen [Tylenol Extra 500 mg PO Q4H PRN PRN #20 tablet 06/11/18 Strength] Ibuprofen 600 mg PO Q6H PRN PRN #20 tablet 06/11/18 Bisoprol/Hydrochlorothiazide [Ziac 1 tab PO DAILY 06/15/18 10/6.25 MG Tablet] Surgical History: - - Cystoscopy and left ureteral stent placement. Psychiatric History: No pertinent psych hx Lives: With Family Smoking Status: Never smoker Alcohol: None Drugs: None - *Family History Maternal History Items: No pertinent history Paternal History Items: Diabetes, Hypertension Review of Systems Constitutional: Reports: Anorexia, Chills, Fever, Weakness Eyes: Denies: Blurred vision, Double vision, Drainage, Redness HEENT: Denies: Difficulty Hearing, Ear Pain, Eye Pain, Nasal Congestion, Sore Throat Cardiovascular: Reports: Light Headedness. Denies: Chest Pain, Chest Pressure, Chest Tightness, Heaviness, Palpitations, Syncope Respiratory: Denies: Cough, Pleuritic Pain, Shortness of Breath, Sputum production, Wheezing Gastrointestinal: Denies: Abdominal Pain, Constipation, Diarrhea, Nausea, Vomiting Genitourinary: Reports: Dysuria, Hematuria. Denies: Frequency Musculoskeletal: Denies: Arm Pain, Back Pain, Foot Pain Skin: Denies: Dryness, Rash Neurological: Denies: Balance problems, Double vision, Change in Speech, Slurred speech, Headaches, Incoordination, Numbness Psychiatric: Denies: Anxiety, Depression Endocrine: Denies: Change in Body Habitus, Polydipsia VTE Information - Inpt Only VTE Present on Admission: No VTE Mechan Device Prophylaxis: None VTE Pharm Prophylaxis ordered?: No Patient Problems: Active and Suspected Problems Acute pyelonephritis (Suspected) Sepsis (Acute) - Physical Exam General: Alert, Oriented x3, Cooperative, No apparent distress HEENT: Atraumatic, PERRLA, EOMI, Normocephalic Oral: Moist Mucosa, No Gingival or Mucosal Lesions/ Ulcerations Neck: Supple, No JVD, Negative Carotid Bruits, Trachea Midline, Thyroid Normal Size and Texture Lungs: Clear to auscultation, No rhonchi, No wheeze, No rales, Diminished Cardiovascular: Regular rate, Regular Rhythm, Normal S1, Normal S2, No murmurs, PMI Normal, Tachycardic Abdomen: Bowel Sounds Present, Soft, Non Tender, Non-Distended, No Hepato- splenomegaly, - - No CVA tenderness. Extremities: No clubbing, No cyanosis, No edema Skin: No rashes, No breakdown Lymphatic: No Cervical, Supraclavicular, or Inguinal Adenopathy Neurological: Cranial nerves II-XII grossly intact, Motor Exam 5/5 strength throughout Psych/Mental Status: Normal Affect, Appropriate, Alert and oriented to time, place, person, mood and affect Vital Signs Temp Pulse Resp BP Pulse Ox 100.8 F H 122 H 18 138/80 H 94 06/15/18 22:42 06/15/18 22:42 06/15/18 22:42 06/15/18 22:42 06/15/18 22:42 Oxygen Delivery Method Room Air Weight: 230 lb Body Mass Index (BMI) 31.1 Microbiology Past 72 Hours 06/15/18 22:54 Influenza Types A,B Direct FA (NARINDER) - Final Mucosa - Nasopharyngeal Laboratory Tests Past 24 Hrs 06/15/18 06/15/18 06/15/18 20:45 20:45 20:45 WBC 17.3 H RBC 5.54 Hgb 15.9 Hct 48.4 MCV 87.4 MCH 28.7 MCHC 32.9 RDW 13.1 RDW Differential 41.7 Plt Count 245 MPV 9.3 Immature Gran % (Auto) 0.300 Neut % (Auto) 90.3 H Lymph % (Auto) 6.6 L Island % (Auto) 2.6 Eos % (Auto) 0.1 Baso % (Auto) 0.1 Absolute Neuts (auto) 15.6 H Absolute Lymphs (auto) 1.14 Total Counted Not Reportable PT 13.1 INR 1.0 APTT 28.3 Sodium 134 L Potassium 3.5 Chloride 101 Carbon Dioxide 23.0 Anion Gap 10 BUN 16 Creatinine 1.25 Estim Creat Clear Calc 81.91 Est GFR (MDRD) Af Amer 80 Est GFR (MDRD) Non-Af 66 BUN/Creatinine Ratio 12.8 Glucose 153 H Lactic Acid Calcium 8.8 Total Bilirubin 0.90 AST 25 ALT 51 Alkaline Phosphatase 132 H Total Protein 8.0 Albumin 3.9 Globulin 4.1 Albumin/Globulin Ratio 1.0 Urine Color Urine Clarity Urine pH Ur Specific [place] Urine Protein Urine Glucose (UA) Urine Ketones Urine Occult Blood Urine Nitrite Urine Bilirubin Urine Urobilinogen Ur Leukocyte Esterase Urine RBC Urine WBC Ur Squamous Epith Cells Urine Bacteria Urine Mucus 06/15/18 06/15/18 20:45 21:45 WBC RBC Hgb Hct MCV MCH MCHC RDW RDW Differential Plt Count MPV Immature Gran % (Auto) Neut % (Auto) Lymph % (Auto) Island % (Auto) Eos % (Auto) Baso % (Auto) Absolute Neuts (auto) Absolute Lymphs (auto) Total Counted PT INR APTT Sodium Potassium Chloride Carbon Dioxide Anion Gap BUN Creatinine Estim Creat Clear Calc Est GFR (MDRD) Af Amer Est GFR (MDRD) Non-Af BUN/Creatinine Ratio Glucose Lactic Acid 1.9 Calcium Total Bilirubin AST ALT Alkaline Phosphatase Total Protein Albumin Globulin Albumin/Globulin Ratio Urine Color Yellow Urine Clarity Sl. Cloudy Urine pH 7.0 Ur Specific [place] 1.010 Urine Protein 15 H Urine Glucose (UA) Normal Urine Ketones 15 H Urine Occult Blood 250 H Urine Nitrite Negative Urine Bilirubin Negative Urine Urobilinogen Normal Ur Leukocyte Esterase 25 H Urine RBC 10-25 SEEN Urine WBC 0 SEEN Ur Squamous Epith Cells 0 SEEN Urine Bacteria 0 SEEN Urine Mucus RARE Clinical Impression(s) from Imaging Studies Chest X-Ray 06/15/18 20:49 IMPRESSION: 1. Nonacute portable x-ray examination of the chest. Electronically Signed: Fredy Person MD at 21:17 EST , Service support , Assessment/Plan All Active Problems Sepsis (Acute) This is a 47 years old male patient presented to the medicine because of dizziness and fever, found to have sepsis and probable acute pyelonephritis in context of recent history of left ureteral stone status post cystoscopy x2 with placement of left ureteral stent and left ureteral calculus lithotripsy. #1 sepsis/probable acute pyelonephritis: Patient has been tachycardic, febrile and he does have leukocytosis. Bacteremia is also in the differential diagnosis. Blood pressure stable. His lactic acid was normal. Urinalysis reviewed as above. Blood and urine culture sent. Chest x-ray showed no acute findings. [facility], cardiac monitoring, blood culture, urine culture, IV fluids, IV morphine as needed, antiemetics, start IV Rocephin 2 g every 24 hours, Tylenol as needed, CT scan abdomen and pelvis without contrast, urology consult, repeat CBC and BMP tomorrow morning. #2 hypertension/tachycardia: Patient does have a history of chronic tachycardia and that is why he has been on verapamil. His blood has been stable but he is tachycardic. Plan to continue bisoprolol/HCTZ, continue verapamil. #3 kidney stones: With recent history of cystoscopy x2 on June 03, 2018 and June 11, 2018 with placement of left ureteral stent and lithotripsy. Plan as above, CT scan abdomen and pelvis without contrast, IV fluids, IV antibiotics, urology consult. #4 DVT prophylaxis: Low-risk patient, no prophylaxis indicated. This note was generated with [employer] dictation software. It may contain incorrect words, spelling, and punctuation that were not noted in checking the note before signing. Code Visit Inpatient E&M: 81731 Init Hosp L3
[2018-06-16] VITALS (14 sets, daily range): BP systolic 90–156; BP diastolic 48–79; PULSE 105–129; RESP 16–18; TEMP 37.5–39.5; O2SAT 94–99
[2018-06-16] MEDS: hydroCHLOROthiazide 25 MG Tablet 6.25 MG PO (01:13)
[2018-06-16] MEDS: Bisoprolol Fumarate 5 MG Tablet 10 MG PO (01:13)
[2018-06-16] MEDS: 0.9% Normal Saline 1,000 ML 125 ML IV ×2 (01:15→04:18)
[2018-06-16] MEDS: Acetaminophen 325 MG Tablet 650 MG PO ×2 (04:18→09:52)
[2018-06-16 06:47] LABS: Absolute Lymphocyte Count 0.92 X10^3/ul (0.83-4.51); Absolute Neutrophil Count 18.1 X10^3/uL (2.0-7.7); Basophil# 0.01 X10^3/uL; Hematocrit 41.8 % (40-54); Hemoglobin 13.6 g/dl (13.0-16.5); Lymphocyte # 0.92 X10^3/ul (4.0); Lymphocyte % 4.6 % (19-41); Mean Corp Hgb Conc 32.5 g/gl (32-36); Mean Corpuscular Hgb 28.5 pg (27.0-32.0); Mean Corpuscular Volume 87.6 fL (80-94); Mean Platelet Vol. 9.2 fl (6.2-12.0); Monocyte# 0.97 X10^3/uL; Monocyte% 4.8 % (0-10); Neutrophil # 18.07 X10^3/uL (2.7-7.7); Neutrophil % 90.4 % (47-70); POSITIVE COUNT NO; POSITIVE DIFFERENTIAL NO; POSITIVE MORPHOLOGY NO; Platelet Count 196 K/mm3 (150-450); RBC Distribution Width CV 13.3 % (11.6-14.6); RBC Distribution Width SD 42.3 fl (35.1-43.9); Red Blood Count 4.77 M/mm3 (4.6-6.2)
[2018-06-16 07:08] LABS: Anion Gap 10 (5-15); BUN 13 mg/dL (7-18); BUN/Creat Ratio 11.2 RATIO (10-20); Chloride 106 mmol/L (98-107); Creatinine, Serum 1.16 mg/dL (0.70-1.30); EST Glomerular Filtration Rate 72 mL/min (>60); Est Glom Filt Rate - Afr Amer 87 mL/min (>60); Estimated Creatinine Clearance 88.27 ml/min; Glucose 149 mg/dL (74-106); Potassium 3.2 mmol/L (3.5-5.1); Sodium Level 140 mmol/L (136-145)
--- NOTE | 2018-06-16 07:29 | PN_ITS ---
Patient Problems: Active and Suspected Problems Acute pyelonephritis (Suspected) Sepsis (Acute) Subjective: Patient was seen and examined. He complains of dizziness, fever and chills. His left flank pain is much improved. Feels nauseous and has had a couple of episodes of vomiting. Urology is consulted; I was made aware that he will be away until 06/19/2018. Patient updated and aware. Vitals/I&O's: Vital Signs Temp Pulse Resp BP Pulse Ox 100.9 F H 107 H 16 122/67 H 99 06/16/18 06:52 06/16/18 06:52 06/16/18 06:52 06/16/18 06:52 06/16/18 06:52 Oxygen Delivery Method Room Air Weight: 110.949 kg Body Mass Index (BMI) 33.1 Intake and Output for Last 24 Hours 06/14/18 06/15/18 06/16/18 23:59 23:59 23:59 Intake Total 1223 / 1223 Output Total 600 / 600 Balance 623 / 623 General: Alert, Oriented x3, Cooperative, - - appears unwell HEENT: Atraumatic, PERRLA, EOMI, Normocephalic Oral: Dry Mucosa Neck: Supple, No JVD, Negative Carotid Bruits Lungs: Clear to auscultation, Normal air movement Cardiovascular: Regular rate, Regular Rhythm, Normal S1, Normal S2, No murmurs Abdomen: Bowel Sounds Present, Soft, Non Tender, Non-Distended, No Hepato- splenomegaly Extremities: No edema Skin: No rashes, No breakdown Musculoskeletal: No Tenderness to Palpation of Joints or Extremities Lymphatic: No Cervical, Supraclavicular, or Inguinal Adenopathy Neurological: Cranial nerves II-XII grossly intact, Neuro grossly intact Psych/Mental Status: Normal Affect, Appropriate Microbiology Past 72 Hours 06/15/18 22:54 Mucosa - Nasopharyngeal Influenza Types A,B Direct FA (NARINDER) - Final Laboratory Results 06/15/18 20:45: WBC 17.3 H, RBC 5.54, Hgb 15.9, Hct 48.4, MCV 87.4, MCH 28.7, MCHC 32.9, RDW 13.1, RDW Differential 41.7, Plt Count 245, MPV 9.3, Immature Gran % (Auto) 0.300, Neut % (Auto) 90.3 H, Lymph % (Auto) 6.6 L, [place] % (Auto) 2.6, Eos % (Auto) 0.1, Baso % (Auto) 0.1, Absolute Neuts (auto) 15.6 H, Absolute Lymphs (auto) 1.14, Total Counted Not Reportable 06/15/18 20:45: PT 13.1, INR 1.0, APTT 28.3 06/15/18 20:45: Sodium 134 L, Potassium 3.5, Chloride 101, Carbon Dioxide 23.0, Anion Gap 10, BUN 16, Creatinine 1.25, Estim Creat Clear Calc 81.91, Est GFR (MDRD) Af Amer 80, Est GFR (MDRD) Non-Af 66, BUN/Creatinine Ratio 12.8, Glucose 153 H, Calcium 8.8, Total Bilirubin 0.90, AST 25, ALT 51, Alkaline Phosphatase 132 H, Total Protein 8.0, Albumin 3.9, Globulin 4.1, Albumin/Globulin Ratio 1.0 06/15/18 20:45: Lactic Acid 1.9 06/15/18 21:45: Urine Color Yellow, Urine Clarity Sl. Cloudy, Urine pH 7.0, Ur Specific [place] 1.010, Urine Protein 15 H, Urine Glucose (UA) Normal, Urine Ketones 15 H, Urine Occult Blood 250 H, Urine Nitrite Negative, Urine Bilirubin Negative, Urine Urobilinogen Normal, Ur Leukocyte Esterase 25 H, Urine RBC 10-25 SEEN, Urine WBC 0 SEEN, Ur Squamous Epith Cells 0 SEEN, Urine Bacteria 0 SEEN, Urine Mucus RARE 06/16/18 06:15: WBC 20.0 H, RBC 4.77, Hgb 13.6, Hct 41.8, MCV 87.6, MCH 28.5, MCHC 32.5, RDW 13.3, RDW Differential 42.3, Plt Count 196, MPV 9.2, Immature Gran % (Auto) 0.200, Neut % (Auto) 90.4 H, Lymph % (Auto) 4.6 L, [place] % (Auto) 4.8, Eos % (Auto) 0.0, Baso % (Auto) 0.0, Absolute Neuts (auto) 18.1 H, Absolute Lymphs (auto) 0.92, Total Counted Not Reportable 06/16/18 06:15: Sodium 140, Potassium 3.2 L, Chloride 106, Carbon Dioxide 24.0, Anion Gap 10, BUN 13, Creatinine 1.16, Estim Creat Clear Calc 88.27, Est GFR (MDRD) Af Amer 87, Est GFR (MDRD) Non-Af 72, BUN/Creatinine Ratio 11.2, Glucose 149 H, Calcium 8.0 L Current Medications Acetaminophen (Tylenol) 650 mg PO Q6H PRN PRN PRN Reason: Mild Pain (scale 0-3)/T>100.7 Last Admin: 06/16/18 04:18 Dose: 650 mg Bisoprolol Fumarate (Zebeta) 10 mg PO QHS [facility] Last Admin: 06/16/18 01:13 Dose: 10 mg Hydrochlorothiazide (Hctz) 6.25 mg PO QHS [facility] Last Admin: 06/16/18 01:13 Dose: 6.25 mg Sodium Chloride () 1,000 mls @ 125 mls/hr IV .Q8H [facility] Last Admin: 06/16/18 04:18 Dose: 125 mls/hr Ceftriaxone Sodium 2 gm/ (Sodium Chloride) 50 mls @ 100 mls/hr IV QHS [facility] Magnesium Hydroxide (Milk Of Magnesia) 30 ml PO DAILY PRN PRN PRN Reason: Constipation Morphine Sulfate () 1 - 2 mg IV Q4H PRN PRN PRN Reason: SEVERE PAIN (6-10/10) Nutritional Formula (Lactose Free) (Ensure Enlive) 120 ml PO 4X/DAY [facility] Ondansetron HCl (Zofran) 4 mg IV Q8H PRN PRN PRN Reason: Nausea Potassium Chloride (K-Dur) 10 meq PO DAILY [facility] Sodium Chloride () 5 - 15 ml IV UD PRN PRN Reason: SALINE FLUSH Verapamil HCl (Calan Sr) 120 mg PO QHS [facility] Zolpidem Tartrate (Ambien (Generic)) 5 mg PO QHS PRN PRN PRN Reason: INSOMNIA Medical Necessity - Tobacco Use Smoking Status: Never smoker Tobacco Use: Non-smoker Assessment/Plan All Active Problems Sepsis (Acute) 47-year-old male with past medical history of hypertension, essential tremor, history of kidney stones, recently underwent cystoscopy with left ureteral stent placement, repeat cystoscopy with left ureteroscopy, laser lithotripsy and placement of left ureteral stent a week after. Patient presents with fever, dizziness ongoing since his last procedure. 1. Sepsis due to probable acute left pyelonephritis, h/o kidney stones On IV ceftriaxone 2. Hypokalemia, replaced, recheck in a.m. 3. Hypertension/chronic tachycardia, to hydrochlorothiazide, bisoprolol, verapamil 4. DVT PPx- early ambulation Code Visit Inpatient E&M: 69743 Subs Hosp L2
[2018-06-16] MEDS: 0.9% NaCl Peripheral Flush Adult/Peds IV (07:50)
[2018-06-16] MEDS: Ondansetron 4 MG/2 ML Vial IV (07:50)
--- NOTE | 2018-06-16 10:53 | CASEMGMT ---
Insurance review for [facility] care facilities per [employer] Martinez website: CC, [facility], [place], [facility], AYANNA MARTINEZ.
--- NOTE | 2018-06-16 12:09 | DCINST_ITS ---
- Discharge Diagnoses Current Active Problems: Current Active and Chronic Problems Sepsis (Acute) History of kidney stones (Chronic) Essential tremor (Chronic) Hypertension (Chronic) Reason(s) for Visit for Discharge Instructions: fever, flank pain You will use the following diet at home:: Regular Your food should be the consistency of: Regular Your liquids should be the consistency of: Regular/Thin Discharge Activity: Return to Normal Activity Allergies/Adverse Reactions: Allergies fish oil Allergy (Verified 06/11/18 10:32) Hives Medications to take at Discharge Potassium Chloride 8 meq PO DAILY 06/03/18 Verapamil HCl [Verapamil Sr] 120 mg PO QHS 06/03/18 Flaxseed Oil 1,000 mg PO DAILY 06/09/18 Acetaminophen [Tylenol Extra Strength] 500 mg PO Q4H PRN PRN #20 tablet 06/11/18 Ibuprofen 600 mg PO Q6H PRN PRN #20 tablet 06/11/18 Bisoprol/Hydrochlorothiazide [Ziac 10/6.25 MG Tablet] 1 tab PO QHS 06/15/18 Primary Care Physician: Ady Kaur MD [Primary Care Provider] - Please follow up with your Primary Care Physician in: within 1-2 weeks Test Results: Test results from this visit will be discussed in further detail at your follow- up appointment, if applicable. Proposed Discharge Date: 06/16/18
--- NOTE | 2018-06-16 12:09 | PCM.DC.SUM ---
Discharge Date and Diagnosis Date of Admission: 06/15/18 Date of Discharge: 06/16/18 - Primary Discharge Diagnosis Active and Suspected Problems Acute pyelonephritis (Suspected) Sepsis (Acute) Gram positive cocci bacteremia - Secondary Discharge Diagnosis Chronic Problems History of kidney stones (Chronic) Essential tremor (Chronic) Hypertension (Chronic) Hospital Course and Treatment Imaging Results: 06/16/18 23:48 Abdomen/Pelvis without Cont [CT] Urgent None Operations: None Procedures: None Summary of Care Provided: The patient is a 47 year old M with PMHx of Hypertension, chronic tachycardia, kidney stones admitted on 06/15/18 with fever and dizziness started in the morning of admission. Patient describes the dizziness as a feeling of lightheadedness with being unsteady and about to fall as well as having fevers of 103F. He denies any chest pain or shortness of breath. He was diagnosed with a left kidney stone 2 weeks prior. He underwent cystoscopy with placement of left ureteral stent for left ureteral calculus. 1 week after the first procedure he underwent repeat cystoscopy with left ureteroscopy and laser to trips he as well as placement of left ureteral stent admission. HEENT was admitted to the telemetry floor as sepsis secondary to acute pyelonephritis, his lactic acid was normal on admission, blood and urine cultures were sent out, chest x-ray showed no acute findings, analysis was negative for nitrite or leukocyte esterase or WBC. CT scan of the abdomen and pelvis showed mild left perinephric and periureteric stranding as well as gallbladder wall thickening. Urology was consulted but was not available in the hospital for more than 4 days. Of note is that patient continued to spike fevers despite being on IV ceftriaxone on the floor. He had an increase in his white cell count. He was found to be hypokalemic with potassium of 3.2. Preliminary blood cultures 1 out of 2 is growing gram-positive cocci possibly enterococcus, his urine cultures came back positive for gram-positive organism. Managed on IV ceftriaxone and IV vancomycin. Patient was transferred to [facility] for urology evaluation for removal of left ureteric stent. Subjective: On the day of discharge, patient was seen and examined. He complained of fever, chills, nausea, vomiting. Says abdominal pain is improved. Has a Tmax of 103F - Physical Exam General: Alert, Oriented x3, Cooperative, - - appears ill, obese HEENT: Atraumatic, PERRLA, EOMI, Normocephalic Oral: Moist Mucosa Neck: Supple Lungs: Clear to auscultation, Normal air movement Cardiovascular: Regular rate, Regular Rhythm, Normal S1, Normal S2, No murmurs Abdomen: Bowel Sounds Present, Soft, Non-Distended, No Hepato-splenomegaly, Tender - mild left flank tenderness+ Extremities: No edema, Capillary Refill Less than 3 Seconds Skin: No rashes, No breakdown Musculoskeletal: No Tenderness to Palpation of Joints or Extremities Lymphatic: No Cervical, Supraclavicular, or Inguinal Adenopathy Neurological: Cranial nerves II-XII grossly intact Psych/Mental Status: Normal Affect, Appropriate Vital Signs Temp Pulse Resp BP Pulse Ox 103.1 F H 113 H 18 124/66 H 97 06/16/18 11:17 06/16/18 11:01 06/16/18 09:59 06/16/18 09:59 06/16/18 11:04 Oxygen Delivery Method Room Air Weight: 110.949 kg Body Mass Index (BMI) 33.1 Intake and Output for Last 24 Hours 06/14/18 06/15/18 06/16/18 23:59 23:59 23:59 Intake Total 2197 / 2197 Output Total 600 / 600 Balance 1597 / 1597 Microbiology Past 72 Hours 06/15/18 21:00 Blood Culture - Preliminary Blood Culture (Wb) - Anticubital Right 06/15/18 22:54 Influenza Types A,B Direct FA (NARINDER) - Final Mucosa - Nasopharyngeal Laboratory Tests Past 24 Hrs 06/15/18 06/15/18 06/15/18 20:45 20:45 20:45 WBC 17.3 H RBC 5.54 Hgb 15.9 Hct 48.4 MCV 87.4 MCH 28.7 MCHC 32.9 RDW 13.1 RDW Differential 41.7 Plt Count 245 MPV 9.3 Immature Gran % (Auto) 0.300 Neut % (Auto) 90.3 H Lymph % (Auto) 6.6 L [place] % (Auto) 2.6 Eos % (Auto) 0.1 Baso % (Auto) 0.1 Absolute Neuts (auto) 15.6 H Absolute Lymphs (auto) 1.14 Total Counted Not Reportable PT 13.1 INR 1.0 APTT 28.3 Sodium 134 L Potassium 3.5 Chloride 101 Carbon Dioxide 23.0 Anion Gap 10 BUN 16 Creatinine 1.25 Estim Creat Clear Calc 81.91 Est GFR (MDRD) Af Amer 80 Est GFR (MDRD) Non-Af 66 BUN/Creatinine Ratio 12.8 Glucose 153 H Lactic Acid Calcium 8.8 Total Bilirubin 0.90 AST 25 ALT 51 Alkaline Phosphatase 132 H Total Protein 8.0 Albumin 3.9 Globulin 4.1 Albumin/Globulin Ratio 1.0 Urine Color Urine Clarity Urine pH Ur Specific [place] Urine Protein Urine Glucose (UA) Urine Ketones Urine Occult Blood Urine Nitrite Urine Bilirubin Urine Urobilinogen Ur Leukocyte Esterase Urine RBC Urine WBC Ur Squamous Epith Cells Urine Bacteria Urine Mucus 06/15/18 06/15/18 06/16/18 20:45 21:45 06:15 WBC 20.0 H RBC 4.77 Hgb 13.6 Hct 41.8 MCV 87.6 MCH 28.5 MCHC 32.5 RDW 13.3 RDW Differential 42.3 Plt Count 196 MPV 9.2 Immature Gran % (Auto) 0.200 Neut % (Auto) 90.4 H Lymph % (Auto) 4.6 L [place] % (Auto) 4.8 Eos % (Auto) 0.0 Baso % (Auto) 0.0 Absolute Neuts (auto) 18.1 H Absolute Lymphs (auto) 0.92 Total Counted Not Reportable PT INR APTT Sodium Potassium Chloride Carbon Dioxide Anion Gap BUN Creatinine Estim Creat Clear Calc Est GFR (MDRD) Af Amer Est GFR (MDRD) Non-Af BUN/Creatinine Ratio Glucose Lactic Acid 1.9 Calcium Total Bilirubin AST ALT Alkaline Phosphatase Total Protein Albumin Globulin Albumin/Globulin Ratio Urine Color Yellow Urine Clarity Sl. Cloudy Urine pH 7.0 Ur Specific [place] 1.010 Urine Protein 15 H Urine Glucose (UA) Normal Urine Ketones 15 H Urine Occult Blood 250 H Urine Nitrite Negative Urine Bilirubin Negative Urine Urobilinogen Normal Ur Leukocyte Esterase 25 H Urine RBC 10-25 SEEN Urine WBC 0 SEEN Ur Squamous Epith Cells 0 SEEN Urine Bacteria 0 SEEN Urine Mucus RARE 06/16/18 06:15 WBC RBC Hgb Hct MCV MCH MCHC RDW RDW Differential Plt Count MPV Immature Gran % (Auto) Neut % (Auto) Lymph % (Auto) [place] % (Auto) Eos % (Auto) Baso % (Auto) Absolute Neuts (auto) Absolute Lymphs (auto) Total Counted PT INR APTT Sodium 140 Potassium 3.2 L Chloride 106 Carbon Dioxide 24.0 Anion Gap 10 BUN 13 Creatinine 1.16 Estim Creat Clear Calc 88.27 Est GFR (MDRD) Af Amer 87 Est GFR (MDRD) Non-Af 72 BUN/Creatinine Ratio 11.2 Glucose 149 H Lactic Acid Calcium 8.0 L Total Bilirubin AST ALT Alkaline Phosphatase Total Protein Albumin Globulin Albumin/Globulin Ratio Urine Color Urine Clarity Urine pH Ur Specific [place] Urine Protein Urine Glucose (UA) Urine Ketones Urine Occult Blood Urine Nitrite Urine Bilirubin Urine Urobilinogen Ur Leukocyte Esterase Urine RBC Urine WBC Ur Squamous Epith Cells Urine Bacteria Urine Mucus Discharge Diet: Low fat/ Low Cholesterol, 2000 mg Sodium Diet Discharge Activity: Return to Normal Activity Home Medications: Medications to take at Discharge Potassium Chloride 8 meq PO DAILY 06/03/18 Verapamil HCl [Verapamil Sr] 120 mg PO QHS 06/03/18 Flaxseed Oil 1,000 mg PO DAILY 06/09/18 Acetaminophen [Tylenol Extra Strength] 500 mg PO Q4H PRN PRN #20 tablet 06/11/18 Ibuprofen 600 mg PO Q6H PRN PRN #20 tablet 06/11/18 Bisoprol/Hydrochlorothiazide [Ziac 10/6.25 MG Tablet] 1 tab PO QHS 06/15/18 Primary Care Physician: Ady Kaur MD [Primary Care Provider] - Please follow up with your Primary Care Physician in: within 1-2 weeks Disposition: Acute care Hospital Minutes spent on discharge:: 40 Patient Condition:: Stable Medical Necessity - Tobacco Use Smoking Status: Never smoker Tobacco Use: Non-smoker Meaningful Use Info Meaningful Use Diagnoses (Choose all that apply): None applicable Code Visit Inpatient E&M: 61867 Disch Hosp
[2018-06-16] MEDS: Ibuprofen 400 MG Tablet PO (12:41)
--- NOTE | 2018-06-16 12:41 | NURSING ---
information faxed to [facility] per Dr. Rabago's request
[2018-06-16] MEDS: 0.9% Normal Saline 1,000 ML 100 ML IV (12:42)
--- NOTE | 2018-06-16 15:58 | PCM.RX.CS ---
<Kathryn Joseph - Last Filed: 06/16/18 15:58> Consult Pharmacy has been consulted to manage selected antiobiotic: Vancomycin Type of Consult: New start Suspected Infection: Bacteremia Prior Doses of Antibiotics Received/Current Regimen: NONE Labs: Sodium 140 mmol/L (136-145) 06/16/18 06:15 Potassium 3.2 mmol/L (3.5-5.1) L 06/16/18 06:15 Chloride 106 mmol/L (98-107) 06/16/18 06:15 Carbon Dioxide 24.0 mmol/L (21.0-32.0) 06/16/18 06:15 Anion Gap 10 (5-15) 06/16/18 06:15 BUN 13 mg/dL (7-18) 06/16/18 06:15 Creatinine 1.16 mg/dL (0.70-1.30) 06/16/18 06:15 Est GFR (MDRD) Af Amer 87 mL/min (>60) 06/16/18 06:15 Est GFR (MDRD) Non-Af 72 mL/min (>60) 06/16/18 06:15 BUN/Creatinine Ratio 11.2 RATIO (10-20) 06/16/18 06:15 Glucose 149 mg/dL (74-106) H 06/16/18 06:15 Microbiology: Microbiology 06/15/18 21:00 Blood Culture (Wb) - Anticubital Right Blood Culture - Preliminary 06/15/18 22:54 Mucosa - Nasopharyngeal Influenza Types A,B Direct FA (NARINDER) - Final Weight used for dosin kg Estimated Creatinine Clearance: 88ML/MIN Goal Trough: 15-20 mcg/mL Pharmacy Plan for Drug Dosing: PLAN/RECOMMENDATIONS 1. Vancomycin 2000mg IV Q12hr to start 06/16/18 @ 1700 --> of note, will not give pt an initial dose, as the 15mg/kg dose is less than the scheduled dose of 2000mg. Will just start scheduled dosing 2. Trough scheduled for 06/18/18 @ 0430, prior to 4th dose 3.Pharmacy Service will continue to monitor and adjust dosing as required. <Emilia Rabago - Last Filed: 06/16/18 17:41> Consult Labs: Sodium 140 mmol/L (136-145) 06/16/18 06:15 Potassium 3.2 mmol/L (3.5-5.1) L 06/16/18 06:15 Chloride 106 mmol/L (98-107) 06/16/18 06:15 Carbon Dioxide 24.0 mmol/L (21.0-32.0) 06/16/18 06:15 Anion Gap 10 (5-15) 06/16/18 06:15 BUN 13 mg/dL (7-18) 06/16/18 06:15 Creatinine 1.16 mg/dL (0.70-1.30) 06/16/18 06:15 Est GFR (MDRD) Af Amer 87 mL/min (>60) 06/16/18 06:15 Est GFR (MDRD) Non-Af 72 mL/min (>60) 06/16/18 06:15 BUN/Creatinine Ratio 11.2 RATIO (10-20) 06/16/18 06:15 Glucose 149 mg/dL (74-106) H 06/16/18 06:15 Microbiology: Microbiology 06/15/18 21:00 Blood Culture (Wb) - Anticubital Right Blood Culture - Preliminary 06/15/18 22:54 Mucosa - Nasopharyngeal Influenza Types A,B Direct FA (NARINDER) - Final Pharmacy Plan for Drug Dosing: Pharmacy Service will continue to monitor and adjust dosing as required.
--- NOTE | 2018-06-16 17:43 | NURSING ---
Report called to [facility] at this time.
--- NOTE | 2018-06-16 23:48 | CT_ITS ---
HISTORY: SEPSIS,? PYELONEPHRITIS,FEVER,DIZZINESS AND ELEVATED WBC,RECENT LT KIDNEY STONE WITH STENT PLACEMENT AND LITHOTRIPSYHX:HTN,KIDNEY STONES TECHNIQUE: Helically acquired images were obtained of the abdomen and pelvis without oral or IV contrast. A radiation dose optimization technique was used for this scan. COMPARISON: 06/03/18 CT abdomen pelvis. FINDINGS: # of images incl. paperwork: 530 Interval placement of a left ureteral stent, the proximal end of the stent is in the proximal ureter, about 4.5 cm caudad from the renal pelvis. The distal tip is curled in the urinary bladder. Mild hydroureter above the stent is new compared to prior. Mild pelvic caliectasis but no hydronephrosis. Mild left-sided perinephric and periureteric stranding. The proximal left ureteral stone seen on the prior study is no longer visible. Several small residual left renal stones have slightly decreased in number compared to previous. Single punctate nonobstructing stone upper pole right kidney unchanged. Right ureter not dilated, no right ureteral stones. No free fluid or free air. Lung bases clear. No acute osseous abnormality. Diffuse hepatic steatosis and mild hepatosplenomegaly again demonstrated. Interval development of gallbladder wall thickening, 8 mm thick. No radiopaque gallstones or biliary obstruction. Pancreas, adrenal glands unremarkable. Normal appendix. No obstruction or inflammation of the bowel. CT/Abdomen/Pelvis without Cont IMPRESSION: Interval placement of a left ureteral stent, the proximal end of the stent is in the proximal ureter, about 4.5 cm caudad from the renal pelvis. Mild hydroureter above the stent which is new compared to previous, but with no hydronephrosis. The proximal left ureteral stone seen on the previous study is no longer evident, and the small residual left renal stones have decreased slightly in number. Mild left perinephric and periureteric stranding not unexpected given the recent stent placement although superimposed infection cannot be excluded. Gallbladder wall thickening. The lack of gallstones and lack of biliary obstruction, and presence of hepatic steatosis, suggest that this is due to third spacing of fluid/hepatic dysfunction both in cholecystitis which is less likely but possible. Otherwise similar to prior. Individualized dose optimization techniques were used for this CT. at 0122 Reported and signed by: Wayne Gutierrez MD Electronically Signed: Wayne Gutierrez, at 1:21 EST Tel , Service support ,
== END 2018-06-16 19:37 | disposition short-term general hospital (02) | DRG 721 ==
LOC: ED 21:16 → MS2 06-16 07:05
PROVIDERS: Admitting Provider Hospitalist; Emergency Provider Emergency Medicine; Family Provider Internal Medicine; PCP Internal Medicine; Referring Provider Hospitalist; Visit Provider Internal Medicine
DX: T81.40XA Infection following a procedure, unspecified, initial encounter (principal); T81.44XA Sepsis following a procedure, initial encounter; A41.81 Sepsis due to Enterococcus; N10 Acute pyelonephritis; N20.0 Calculus of kidney; E87.6 Hypokalemia; I10 Essential (primary) hypertension; G25.0 Essential tremor; Z79.899 Other long term (current) drug therapy
CPT/HCPCS: 36415; 71045; 74176; 80048; 80053; 81001; 83605; 85025; 85610; 85730; 87040; 87077; 87086; 87088; 87186; 87804; 93005; 97802; 99284; J7030; J7040; A4216; J2405

== ENCOUNTER 2018-07-18 13:48 | Emergency (ER) | payer MEDICAID, SELFPAY ==
[2018-06-15 23:49] VITALS: BMI 33.1
[2018-07-18 13:48] VITALS: BP 150/101; PULSE 97; RESP 16; TEMP 36.7; O2SAT 94; BMI 33.9
--- NOTE | 2018-07-18 14:30 | CT_ITS ---
STUDY: CT ABDOMEN AND PELVIS WITHOUT CONTRAST REASON FOR EXAM: Male, 47 years old. Left-sided flank pain. History of kidney stones. RADIATION DOSAGE (If Supplied By Facility): CTDIvol = ( 20.91 ) mGy, DLP = ( 1191.38 ) mGycm TECHNIQUE: Transaxial images were obtained from the dome of the diaphragm to the symphysis pubis without oral contrast, and without intravenous contrast. Sagittal and coronal images were reconstructed. Individualized dose optimization techniques were used for this CT. COMPARISON: Comparison is made with prior study of June 16, 2018. FINDINGS: The visualized lung bases are unremarkable. The visualized portions of the heart are within normal limits. There is decreased attenuation of the liver consistent with steatosis. Normal gallbladder and extrahepatic biliary system. Normal spleen. Normal pancreas. Normal bilateral adrenal glands. Stable punctate nonobstructing calculi is in the upper pole of the right kidney. The previously seen double-J stent catheter in the left ureter as been removed. There is a 8.3 mm calculus in the posterior midportion of the left kidney. A 4 mm calculus also seen in the lower pole calyx of the left kidney as well as a punctate calcification. There is no evidence of hydronephrosis. Normal visualized stomach. Normal small intestine. Normal colon. The appendix is visualized and appears normal. Normal abdominal aorta. Normal inferior vena cava. Normal retroperitoneum. Normal urinary bladder. Normal abdominal wall. Normal osseous structures. CT/Abdomen/Pelvis without Cont IMPRESSION: Status post removal of the left double-J stent catheter. Stable bilateral nonobstructive intrarenal calculi. Electronically Signed: Marco A Sheets, at 15:18 EDT , Service support ,
[2018-07-18] MEDS: 0.9% Normal Saline 1,000 ML 250 ML IV (14:42)
[2018-07-18 14:50] LABS: Absolute Lymphocyte Count 1.79 X10^3/ul (0.83-4.51); Absolute Neutrophil Count 4.8 X10^3/uL (2.0-7.7); Basophil# 0.02 X10^3/uL; Basophil% 0.3 % (0-1); Eosinophil# 0.16 X10^3/uL; Eosinophils% 2.2 % (0-5); Hematocrit 44.9 % (40-54); Hemoglobin 15.2 g/dl (13.0-16.5); Lymphocyte # 1.79 X10^3/ul (4.0); Lymphocyte % 24.5 % (19-41); Mean Corp Hgb Conc 33.9 g/gl (32-36); Mean Corpuscular Hgb 29.2 pg (27.0-32.0); Mean Corpuscular Volume 86.2 fL (80-94); Mean Platelet Vol. 9.5 fl (6.2-12.0); Monocyte# 0.44 X10^3/uL; Neutrophil # 4.84 X10^3/uL (2.7-7.7); Neutrophil % 66.3 % (47-70); Platelet Count 182 K/mm3 (150-450); RBC Distribution Width CV 13.6 % (11.6-14.6); RBC Distribution Width SD 42.7 fl (35.1-43.9); Red Blood Count 5.21 M/mm3 (4.6-6.2); White Blood Count 7.3 K/mm3 (4.4-11.0)
[2018-07-18 14:51] LABS: POSITIVE COUNT NO; POSITIVE DIFFERENTIAL NO; POSITIVE MORPHOLOGY NO
[2018-07-18 15:06] LABS: Anion Gap 7 (5-15); BUN 11 mg/dL (7-18); BUN/Creat Ratio 10.3 RATIO (10-20); Calcium,Total 9.1 mg/dL (8.5-10.1); Chloride 103 mmol/L (98-107); Creatinine, Serum 1.07 mg/dL (0.70-1.30); EST Glomerular Filtration Rate 79 mL/min (>60); Est Glom Filt Rate - Afr Amer 96 mL/min (>60); Estimated Creatinine Clearance 95.69 ml/min; Glucose 155 mg/dL (74-106); Potassium 3.8 mmol/L (3.5-5.1); Sodium Level 138 mmol/L (136-145)
[2018-07-18 15:12] LABS: Bacteria 0 SEEN /hpf (None Seen); Red Blood Cells-Urine 0 SEEN /hpf (0-5); Squamous Epithelial Cells - UA 0 SEEN /hpf (0-5)
[2018-07-18 16:02] LABS: Color, Urine Yellow (Yellow); Glucose, Dipstick Normal (Normal); Ketone-Dipstick Negative (Negative); Leukocyte Esterase-Dipstick Negative /ul (Negative); Nitrite-Dipstick Negative (Negative); Occult Blood-Urine Negative /ul (Negative); Protein-Dipstick Negative (Negative); Urine Bilirubin Dipstick Negative (Negative); Urine Clarity Clear (Clear); Urine Urobilinogen Normal (Normal)
[2018-07-18 16:04] LABS: Mucous, Urine RARE /hpf (<or=2+); White Blood Cells 0-5 SEEN /hpf (0-5)
--- NOTE | 2018-07-18 16:07 | ED.VISSUMM ---
- ER Visit Summary Date of Service: 07/18/18 Chief Complaint: Flank pain History of Present Illness: The patient is a [address] Kaur. He reports that he has left flank pain that began at 7:00 this morning. It was a sharp, stabbing pain is 5-10 worse and he is pain-free currently. Pain is worsened by movement relieved by laying still. Denies any associated nausea, vomiting, diarrhea. His last bowel was today. No mild hematochezia. No dysuria or frequency. Patient does have a history of kidney stones. He had a left ureteral stent placed 09/[address] Saxena. One week later he had lithotripsy and a stent was replaced. He became septic after this was transferred to [facility]. They pulled the stent and put him on antibiotics. They did not do any other procedure. He finished his amoxicillin approximately 1 week ago. Physical Examination: Vitals: Stable. Afebrile. General: Well-nourished and well-developed. Head: Normocephalic atraumatic. Neck: Supple, no lymphadenopathy. No JVD. Nontender. Cardiovascular: Regular rate and rhythm. No murmurs. Respiratory: No respiratory distress. Clear to auscultation bilaterally. Abdominal: Soft, nontender, nondistended, normal bowel sounds. No guarding, rebound, or peritoneal signs. Back: Nontender. Extremities: Nontender, no edema. Skin: Normal color, no rash. Neurologic: Alert and oriented ?3. Cranial nerves II through XII are intact. Normal strength and sensation. Psych: Normal affect. Test Results: CBC is normal. Chem-7 shows a glucose 155. UA is normal. Clinical Impression(s) from Imaging Studies Abdomen/Pelvis CT 07/18/18 14:30 IMPRESSION: Status post removal of the left double-J stent catheter. Stable bilateral nonobstructive intrarenal calculi. Electronically Signed: Marco A Sheets, at 15:18 EDT , Service support , Emergency Department Course and Treatment: Patient is resting comfortably. He refused pain or nausea medications. Treatment Plan: Patient be discharged with Zofran. Instructed use Tylenol and/or ibuprofen for pain. Follow-up with his urologist Dr. Fuentes as previously scheduled. Return to the emergency department for any worsening symptoms. Disposition: To home in improved and stable condition. Impression: 1. Left flank pain, uncertain cause. This note was generated with [employer] dictation software. It may contain incorrect words, spelling, and punctuation that were not noted in review of the chart prior to signing ED Disposition - Plan for ED Patient: Disposition: Home or Assisted Living Instructions: ED Flank Pain Uncertain Cause Prescriptions: Ondansetron [Zofran Odt] 4 mg PO Q8H PRN PRN #10 tablet PRN Reason: Nausea Referrals: Ady Kaur MD [Primary Care Provider] - 1-2 Days if not improving
--- NOTE | 2018-07-18 16:11 | ED.DCSUM_ITS ---
- ER Visit Summary Date of Service: 07/18/18 Chief Complaint: Flank pain History of Present Illness: The patient is a [address] Kaur. He reports that he has left flank pain that began at 7:00 this morning. It was a sharp, stabbing pain is 5-10 worse and he is pain-free currently. Pain is wor sened by movement relieved by laying still. Denies any associated nausea, vomiting, diarrhea. His last bowel was today. No mild hematochezia. No dysuria or frequency. Patient does have a history of kidney stones. He had a left ureteral stent placed 09/[address] Saxena. One week later he had lithotripsy and a stent was replaced. He became septic after this was transferred to [facility]. They pulled the stent and put him on antibiotics. They did not do any other procedure. He finished his amoxicillin approximately 1 week ago. Physical Examination: Vitals: Stable. Afebrile. General: Well-nourished and well-developed. Head: Normocephalic atraumatic. Neck: Supple, no lymphadenopathy. No JVD. Nontender. Cardiovascular: Regular rate and rhythm. No murmurs. Respiratory: No respiratory distress. Clear to auscultation bilaterally. Abdominal: Soft, nontender, nondistended, normal bowel sounds. No guarding, rebound, or peritoneal signs. Back: Nontender. Extremities: Nontender, no edema. Skin: Normal color, no rash. Neurologic: Alert and oriented ?3. Cranial nerves II through XII are intact. Normal strength and sensation. Psych: Normal affect. Test Results: CBC is normal. Chem-7 shows a glucose 155. UA is normal. Clinical Impression(s) from Imaging Studies Abdomen/Pelvis CT 07/18/18 14:30 IMPRESSION: Status post removal of the left double-J stent catheter. Stable bilateral nonobstructive intrarenal calculi. Electronically Signed: Marco A Sheets, at 15:18 EDT , Service support , Emergency Department Course and Treatment: Patient is resting comfortably. He refused pain or nausea medications. Treatment Plan: Patient be discharged with Zofran. Instructed use Tylenol and/or ibuprofen for pain. Follow-up with his urologist Dr. Fuentes as previously scheduled. Return to the emergency department for any worsening symptoms. Disposition: To home in improved and stable condition. Impression: 1. Left flank pain, uncertain cause. This note was generated with [employer] ([employer]) dictation software. It may contain incorrect words, spelling, and punctuation that were not noted in review of the chart prior to signing ED Disposition - Plan for ED Patient: Disposition: Home or Assisted Living Instructions: ED Flank Pain Uncertain Cause Prescriptions: Ondansetron [Zofran Odt] 4 mg PO Q8H PRN PRN #10 tablet PRN Reason: Nausea Referrals: Ady Kaur MD [Primary Care Provider] - 1-2 Days if not improving
[2018-07-18 16:35] VITALS: BP 147/98; PULSE 82; RESP 16; O2SAT 93
== END 2018-07-18 16:37 | disposition home or self-care (01) ==
LOC: ED 14:37
PROVIDERS: Emergency Provider Emergency Medicine; Family Provider Internal Medicine; PCP Internal Medicine
DX: R10.9 Unspecified abdominal pain (principal); Z87.442 Personal history of urinary calculi; I10 Essential (primary) hypertension
CPT/HCPCS: 74176; 80048; 81001; 85025; 96360; 96361; 99283; J7030; A4216